=== PATIENT | male | born 1975 | race Caucasian/White ===

== ENCOUNTER 2020-12-17 11:47 | Inpatient (IN) ==
[2020-12-17] MEDS ORDERED: ONDANSETRON INJ 2 MG/ML 2 ML VIAL IV STA (12:50)
[2020-12-17] MEDS ORDERED: SODIUM CHLORIDE 0.9% 1000ML 1,000 ML IV STA (12:50)
--- NOTE | 2020-12-17 12:56 | Emergency Department Note ---
Impression & Plan Hydronephrosis due to obstruction of ureter, Renal colic on left side, Hydroureteronephrosis, Flank Pain ED Provider Note NAME: ILIA [id number] COLON AGE: 45 SEX: M : 1975 ARRIVES VIA: [employer] INFORMANT: Patient, ED PROVIDER(S): Sanchez Lepe DO CHIEF COMPLAINT: Flank pain HPI: The patient is a 45-year-old male who presented to the emergency department from the [facility] for an evaluation of left-sided flank pain. The patient was seen in our facility recently with similar complaints. At that time he was diagnosed with a 3 mm distal left ureteral calculus. He states a few days ago he feels that he passed the stone and was doing well until this morning. He had another acute onset of left-sided flank pain. He states it is associated with nausea. He states the pain is moderate to severe and radiates into his left testicle. He went to the [facility] and was treated with Toradol but symptoms worsen so he presented to the emergency department for an evaluation. The patient notices left flank pain but no midline pain. He said no trauma. He denies having any chest pain or difficulty breathing. He states the pain is moderate to severe. ROS: See above HPI for pertinent positives & negatives. A total of 10 systems reviewed and were otherwise negative. PAST MEDICAL HISTORY: See Below PAST SURGICAL HISTORY: See Below FAMILY HISTORY: See Below SOCIAL HISTORY: See Below HOME MEDICATIONS: See Below ALLERGIES: See Below VITALS: See Below PHYSICAL EXAMINATION: GENERAL: The patient is awake and alert. The patient is very anxious appearing. EYES: The conjunctivae are clear. The pupils are round and reactive. EARS, NOSE, MOUTH AND THROAT: The nose is without any evidence of any deformity. Mucous membranes are moist. Tongue is midline. NECK: The neck is nontender and supple. RESPIRATORY: Normal respiratory effort is noted there is no evidence of wheezing rhonchi or rales CARDIOVASCULAR: Regular rate and rhythm noted there no murmurs rubs or gallops normal S1 normal S2. GASTROINTESTINAL: The abdomen is soft and nondistended. There is left-sided tenderness to palpation but no guarding rigidity. BACK: No midline tenderness was noted. Left CVA tenderness was noted to percussion. MUSCULOSKELETAL/EXTREMITIES: There is no evidence of gross deformity full range of motion is noted in the hips and shoulders. SKIN: There is no obvious evidence of any rash. There are no petechiae, pallor or cyanosis noted. NEUROLOGIC: Patient is awake alert and oriented x3 strength is symmetric patellar reflexes are 2+ bilaterally MEDICAL DECISION MAKING: The patient is a 45-year-old male who presented to the emergency department for an evaluation of flank pain. The patient was treated with pain medication in the emergency department previously and was able to go home. He returns because of worsening pain. I discussed the patient's laboratory and radiographic studies with him. He was treated with multiple doses of pain medication but he still continues to have very significant pain. For this reason I discussed this case with the on-call [facility] hospitalist. They have agreed to evaluate the patient in the emergency department. He does have a stone that is low and may still be able to pass on medical treatment. [facility] in the emergency department for further management. Triage Nursing notes reviewed. Prior medical records reviewed Vital Signs: reviewed and remarkable for no significant abnormalities Differential diagnosis: Renal colic, UTI, appendicitis, diverticulitis, mesenteric ischemia, aortic pathology, infections, inflammatory bowel disease, PUD, biliary pathology, as well as other pathologies. ER treatment provided: See below Diagnostics interpreted by me: ECG: none Laboratory studies: As stated above and show below. Imaging studies: See below Consultation(s): I discussed this case with Dr. Bills who [facility] They will evaluate the patient in the emergency department. Past Med/Surg History Medical History History of kidney infection Surgical History No pertinent past surgical history Social History Smoking Status: Never smoker Hx Alcohol Use: No Hx Substance Use: No Preferred Language: Upper Sorbian Feels Safe at Home: Yes Allergies Allergies Allergy/AdvReac Type Severity Reaction Status Date / Time No Known Allergies Allergy Unverified 12/17/20 14:40 Home Meds Home Medications Medication Instructions Recorded Confirmed aripiprazole 5 mg tablet (Abilify) 5 mg PO BID 12/08/20 12/17/20 ibuprofen 600 mg tablet (IBU) 600 mg PO Q6H PRN 12/08/20 12/17/20 ketorolac 60 mg/2 mL intramuscular 60 mg IM DAILY 12/08/20 12/17/20 solution ketorolac 60 mg/2 mL intramuscular 30 mg IM ONCE 12/08/20 12/17/20 syringe Previous Rx's Medication Instructions Recorded tamsulosin 0.4 mg capsule (Flomax) 0.4 mg PO HS #10 cap 12/08/20 Results & Data (ED) Vital Signs Vital Signs - 24 hr 12/17/20 11:56 12/17/20 13:17 12/17/20 15:17 Temperature 36.7 C Temperature Source Oral Pulse Rate 70 Pulse Rate [Finger] 72 70 Pulse Rhythm Regular Pulse Strength Normal Respiratory Rate 16 18 20 Respiratory Effort / Characteristics Non-Labored Respiratory Depth Normal Respiratory Pattern Regular Blood Pressure 149/74 H Blood Pressure [Right Arm] 136/85 130/72 Blood Pressure Mean 99 Blood Pressure Mean [Right Arm] 102 91 Blood Pressure Position Sitting Pulse Oximetry 98 98 98 Oxygen Delivery Method Room Air Sepsis Recent Fever Within 48 Hours No Sepsis New/Unexplained Change in Mental Status N/A Sepsis Action Taken by Nursing No Action Required 12/17/20 16:30 Temperature Temperature Source Pulse Rate Pulse Rate [Finger] 72 Pulse Rhythm Pulse Strength Respiratory Rate 20 Respiratory Effort / Characteristics Respiratory Depth Respiratory Pattern Blood Pressure Blood Pressure [Right Arm] 134/76 Blood Pressure Mean Blood Pressure Mean [Right Arm] 95 Blood Pressure Position Pulse Oximetry 98 Oxygen Delivery Method Sepsis Recent Fever Within 48 Hours Sepsis New/Unexplained Change in Mental Status Sepsis Action Taken by [place] Medications Current Medication List: was personally reviewed by me Laboratory Data Attestation: I reviewed the patient's lab results. Result diagrams: 12/17/20 12:56 12/17/20 12:56 Lab Results 12/17/20 12/17/20 12/17/20 Range/Units 12:56 12:56 13:40 WBC 7.18 (4.8-10.8) K/uL RBC 4.87 (4.7-6.1) M/uL Hgb 14.6 (14.0-18.0) g/dL Hct 43.3 (42-52) % MCV 88.9 (80-100) fL MCH 30.0 (25-34) pg MCHC 33.7 (32-36) g/dL RDW Std Deviation 43.5 (36.4-46.3) fL RDW Coeff of Karli 13.2 (11.5-14.5) % Plt Count 199 (130-400) K/uL MPV 10.5 H (7.4-10.4) fL Immature Gran % (Auto) 0.3 % Neut % (Auto) 70.2 % Lymph % (Auto) 19.6 % Latimer % (Auto) 8.9 % Eos % (Auto) 0.4 % Baso % (Auto) 0.6 % Neut # (Auto) 5.04 (1.4-6.5) K/uL Lymph # (Auto) 1.41 (1.2-3.4) K/uL Latimer # (Auto) 0.64 H (0.11-0.59) K/uL Eos # (Auto) 0.03 (0-0.5) K/uL Baso # (Auto) 0.04 (0-0.2) K/uL Immature Gran # (Auto) 0.02 (0.00-0.02) K/uL Sodium 138 (136-145) mmol/L Potassium 4.3 (3.5-5.1) mmol/L Chloride 108 H (98-107) mmol/L Carbon Dioxide 27 (21-32) mmol/L Anion Gap 3.0 (3-11) BUN 13 (7-18) mg/dl Creatinine 1.23 (0.6-1.4) mg/dl Est Cr Clr Drug Dosing 74.9 ml/min Est GFR ( Amer) 82.8 ml/min Est GFR (Non-Af Amer) 71.5 ml/min BUN/Creatinine Ratio 10.7 (10-20) Glucose 85 (70-99) mg/dl Calcium 9.3 (8.5-10.1) mg/dl Total Bilirubin 0.6 (0.2-1) mg/dl AST 14 L (15-37) U/L ALT 18 (12-78) U/L Alkaline Phosphatase 40 L (45-117) U/L Total Protein 7.5 (6.4-8.2) gm/dl Albumin 4.0 (3.4-5.0) gm/dl Globulin 3.5 (2.5-4.0) gm/dl Albumin/Globulin Ratio 1.1 (0.9-2) Lipase 186 (73-393) U/L Urine Color Yellow Urine Appearance Clear (Clear) Urine pH 6.5 (4.5-7.5) Ur Specific Hollister 1.010 (1.000-1.030) Urine Protein Negative (Negative) Urine Glucose (UA) Negative (Negative) Urine Ketones Negative (Negative) Urine Blood 1+ H (Negative) Urine Nitrite Negative (Negative) Urine Bilirubin Negative (Negative) Urine Urobilinogen Negative (Negative) Ur Leukocyte Esterase Negative (Negative) Urine WBC (Auto) 0 (0-5) /hpf Urine RBC (Auto) 0-4 (0-4) /hpf U Hyaline Cast (Auto) 0 (0-5) /lpf U Epithel Cells (Auto) 0-5 (0-5) /lpf Urine Bacteria (Auto) Negative (Negative) COVID-19 Eval Order SARS-CoV-2 (PCR) (Negative) 12/17/20 12/17/20 Range/Units 15:53 15:53 WBC (4.8-10.8) K/uL RBC (4.7-6.1) M/uL Hgb (14.0-18.0) g/dL Hct (42-52) % MCV (80-100) fL MCH (25-34) pg MCHC (32-36) g/dL RDW Std Deviation (36.4-46.3) fL RDW Coeff of Karli (11.5-14.5) % Plt Count (130-400) K/uL MPV (7.4-10.4) fL Immature Gran % (Auto) % Neut % (Auto) % Lymph % (Auto) % Latimer % (Auto) % Eos % (Auto) % Baso % (Auto) % Neut # (Auto) (1.4-6.5) K/uL Lymph # (Auto) (1.2-3.4) K/uL Latimer # (Auto) (0.11-0.59) K/uL Eos # (Auto) (0-0.5) K/uL Baso # (Auto) (0-0.2) K/uL Immature Gran # (Auto) (0.00-0.02) K/uL Sodium (136-145) mmol/L Potassium (3.5-5.1) mmol/L Chloride (98-107) mmol/L Carbon Dioxide (21-32) mmol/L Anion Gap (3-11) BUN (7-18) mg/dl Creatinine (0.6-1.4) mg/dl Est Cr Clr Drug Dosing ml/min Est GFR ( Amer) ml/min Est GFR (Non-Af Amer) ml/min BUN/Creatinine Ratio (10-20) Glucose (70-99) mg/dl Calcium (8.5-10.1) mg/dl Total Bilirubin (0.2-1) mg/dl AST (15-37) U/L ALT (12-78) U/L Alkaline Phosphatase (45-117) U/L Total Protein (6.4-8.2) gm/dl Albumin (3.4-5.0) gm/dl Globulin (2.5-4.0) gm/dl Albumin/Globulin Ratio (0.9-2) Lipase (73-393) U/L Urine Color Urine Appearance (Clear) Urine pH (4.5-7.5) Ur Specific Hollister (1.000-1.030) Urine Protein (Negative) Urine Glucose (UA) (Negative) Urine Ketones (Negative) Urine Blood (Negative) Urine Nitrite (Negative) Urine Bilirubin (Negative) Urine Urobilinogen (Negative) Ur Leukocyte Esterase (Negative) Urine WBC (Auto) (0-5) /hpf Urine RBC (Auto) (0-4) /hpf U Hyaline Cast (Auto) (0-5) /lpf U Epithel Cells (Auto) (0-5) /lpf Urine Bacteria (Auto) (Negative) COVID-19 Eval Order Covid19 at [facility] SARS-CoV-2 (PCR) NEGATIVE (Negative) Administered Medications Morphine Sulfate (Morphine Sulfate 4 Mg/Ml 1 Ml Carp\Vial) 4 mg IV Q15M PRN PRN Reason: Pain Stop: 12/31/20 12:49 Last Admin: 12/17/20 16:36 Dose: 4 mg Documented by: [id number] Admin: 12/17/20 15:39 Dose: 4 mg Documented by: [id number] Admin: 12/17/20 15:02 Dose: 4 mg Documented by: [id number] Admin: 12/17/20 14:20 Dose: 4 mg Documented by: [id number] Admin: 12/17/20 13:42 Dose: 4 mg Documented by: [id number] Admin: 12/17/20 13:11 Dose: 4 mg Documented by: [id number] Discontinued Medications Sodium Chloride (Nss 1000ml) 1,000 mls @ 999 mls/hr IV .Q1H1M STA Stop: 12/17/20 13:50 Last Infusion: 12/17/20 14:13 Dose: 0 mls/hr Documented by: [id number] Admin: 12/17/20 13:12 Dose: 999 mls/hr Documented by: [id number] Ondansetron HCl (Ondansetron Inj 2 Mg/Ml 2 Ml Vial) 4 mg IV NOW STA Stop: 12/17/20 12:51 Last Admin: 12/17/20 13:11 Dose: 4 mg Documented by: [id number] Imaging Data Radiologist's Impression: KUB X-Ray 12/17/20 12:58 KUB CLINICAL HISTORY: Left flank pain. COMPARISON STUDY: CT of the abdomen and pelvis December 08, 2020. FINDINGS: 5 mm distal left ureteral calculus is similar position to CT of December 08, 2020. Additional pelvic calcifications reflect phleboliths and prostatic calcifications. The bowel gas pattern is normal. IMPRESSION: No significant change in position of a 5 mm distal left ureteral calculus. ACT 112: Negative or not required by law. Electronically signed by: Himanshu Blount M.D. 12/17/2020 1:57 PM Renal Ultrasound 12/17/20 12:58 ULTRASOUND KIDNEYS AND BLADDER CLINICAL HISTORY: Left flank pain. Nephrolithiasis. COMPARISON STUDY: KUB dated 12/17/2020. Abdominal CT dated 12/08/2020 TECHNIQUE: Real-time, grayscale, and color flow sonography of the kidneys and bladder is performed. Images are reviewed in the transverse and longitudinal planes. FINDINGS: Kidneys: The kidneys are normal in size and echotexture. The right kidney measures 9.8 x 4.6 x 5.1 cm and the left kidney measures 11.5 x 7.0 x 6.2 cm. There is mild to moderate left-sided hydronephrosis. No hydronephrosis is seen on the right. No shadowing renal calculi are identified. There is no sonographic evidence of contour deforming renal mass lesion. No perinephric fluid is identified. Bladder: The bladder is normal in appearance. Only the right ureteral jet was seen. A 7 mm shadowing calculus is seen at the left vesicoureteral junction. IMPRESSION: 1. A 7 mm shadowing calculus is seen at the left vesicoureteral junction and there is mild to moderate upstream left hydroureteronephrosis. 2. The kidneys are normal in size. There is no right-sided hydronephrosis. 3. Asymmetrically diminished/heterogeneous cortical enhancement of the left kidney as compared to the right on the recent abdominal CT scan is represents a delayed nephrogram secondary to left sided obstruction/hydronephrosis. ACT 112: Negative or not required by law. Electronically signed by: Asif Turcios M.D. 12/17/2020 2:20 PM Discharge Plan Visit Data Chief Complaint: Kidney Stone Stated Complaint: KIDNEY STONE ED Provider: Sanchez Lepe Discharge Problem: Hydronephrosis due to obstruction of ureter, Renal colic on left side, Hydroureteronephrosis, Flank Pain Patient Disposition: Being Evaluated by Hospitalist Condition: Good Forms Stand Alone Forms: [facility] [place] [email or web address] Prescriptions Prescriptions: No Action ibuprofen [IBU] 600 mg Tablet 600 mg PO Q6H PRN (Reason: Pain) RF: 0 ketorolac 60 mg/2 mL Solution 60 mg IM DAILY RF: 0 aripiprazole [Abilify] 5 mg Tablet 5 mg PO BID RF: 0 ketorolac 60 mg/2 mL Syringe 30 mg IM ONCE RF: 0 tamsulosin [Flomax] 0.4 mg capsule 0.4 mg PO HS Qty: 10 RF: 0 Referrals Referrals: Nicolle PRATHER [Primary Care Provider] -
[2020-12-17 13:10] LABS: Basophils # (auto) 0.04 K/uL (0-0.2); Basophils % (auto) 0.6 %; Eosinophils # (auto) 0.03 K/uL (0-0.5); Eosinophils % (auto) 0.4 %; Hematocrit (blood only) 43.3 % (42-52); Hemoglobin 14.6 g/dL (14.0-18.0); Immature Granulocytes # (auto) 0.02 K/uL (0.00-0.02); Immature Granulocytes % (auto) 0.3 %; Lymphocytes # (auto) 1.41 K/uL (1.2-3.4); Lymphocytes % (auto) 19.6 %; Mean Corpuscular Hgb Conc 33.7 g/dL (32-36); Mean Corpuscular Volume 88.9 fL (80-100); Mean Platelet Volume 10.5 fL (7.4-10.4); Monocytes # (auto) 0.64 K/uL (0.11-0.59); Monocytes % (auto) 8.9 %; Neutrophils # (auto) 5.04 K/uL (1.4-6.5); Neutrophils % (auto) 70.2 %; Platelet Count 199 K/uL (130-400); RDW Coefficient of Variation 13.2 % (11.5-14.5); RDW Standard Deviation 43.5 fL (36.4-46.3); Red Blood Count 4.87 M/uL (4.7-6.1); White Blood Count 7.18 K/uL (4.8-10.8)
[2020-12-17] MEDS: MoRPHine SULFATE 4 MG/ML 1 ML CARP\\VIAL IV PRN ×6 (13:11→16:36)
[2020-12-17 13:25] LABS: BUN Creatinine Ratio 10.7 (10-20); Calcium 9.3 mg/dl (8.5-10.1); Creatinine Clr Calc Pharmacy 74.9 ml/min; Est GFR (African American) 82.8 ml/min; Est GFR (Non-African American) 71.5 ml/min; Potassium 4.3 mmol/L (3.5-5.1)
[2020-12-17 13:28] LABS: Albumin Globulin Ratio 1.1 (0.9-2); Bilirubin,Total 0.6 mg/dl (0.2-1); Globulin 3.5 gm/dl (2.5-4.0); Total Protein 7.5 gm/dl (6.4-8.2)
[2020-12-17 13:53] LABS: Appearance Urine Clear (Clear); Bacteria Urine Automated Negative (Negative); Bilirubin Urine Negative (Negative); Blood Urine 1+ (Negative); Cast Urine Automated 0 /lpf (0-5); Color Urine Yellow; Epithelial Cell Urine Auto 0-5 /lpf (0-5); Glucose Urine UA Negative (Negative); Ketones Urine Negative (Negative); Leukocyte Esterase Urine Negative (Negative); Nitrite Urine Negative (Negative); Protein Urine Negative (Negative); RBC Urine Automated 0-4 /hpf (0-4); Urobilinogen Urine Negative (Negative); WBC Urine Automated 0 /hpf (0-5); pH Urine 6.5 (4.5-7.5)
--- NOTE | 2020-12-17 13:58 | XRay Report ---
KUB CLINICAL HISTORY: Left flank pain. COMPARISON STUDY: CT of the abdomen and pelvis December 08, 2020. FINDINGS: 5 mm distal left ureteral calculus is similar position to CT of December 08, 2020. Additional p elvic calcifications reflect phleboliths and prostatic calcifications. The bowel gas pattern is radha l. IMPRESSION: No significant change in position of a 5 mm distal left ureteral calculus. ACT 112: Negative or not required by law. Electronically signed by: Himanshu Blount M.D. 12/17/2020 1:57 PM
--- NOTE | 2020-12-17 14:21 | Ultrasound Report ---
ULTRASOUND KIDNEYS AND BLADDER CLINICAL HISTORY: Left flank pain. Nephrolithiasis. COMPARISON STUDY: KUB dated 12/17/2020. Abdominal CT dated 12/08/2020 TECHNIQUE: Real-time, grayscale, and color flow sonography of the kidneys and bladder is performed. I mages are reviewed in the transverse and longitudinal planes. FINDINGS: Kidneys: The kidneys are normal in size and echotexture. The right kidney measures 9.8 x 4.6 x 5.1 cm and the left kidney measures 11.5 x 7.0 x 6.2 cm. There is mild to moderate left-sided hydronephros is. No hydronephrosis is seen on the right. No shadowing renal calculi are identified. There is no so nographic evidence of contour deforming renal mass lesion. No perinephric fluid is identified. Bladder: The bladder is normal in appearance. Only the right ureteral jet was seen. A 7 mm shadowing calculus is seen at the left vesicoureteral junction. IMPRESSION: 1. A 7 mm shadowing calculus is seen at the left vesicoureteral junction and there is mild to moderat e upstream left hydroureteronephrosis. 2. The kidneys are normal in size. There is no right-sided hydronephrosis. 3. Asymmetrically diminished/heterogeneous cortical enhancement of the left kidney as compared to the right on the recent abdominal CT scan is represents a delayed nephrogram secondary to left sided obs truction/hydronephrosis. ACT 112: Negative or not required by law. Electronically signed by: Asif Turcios M.D. 12/17/2020 2:20 PM
--- NOTE | 2020-12-17 16:52 | History & Physical Report ---
Date of Service December 17, 2020 Assessment & Plan (1) Renal colic on left side: Plan: Patient has obstructive nephrolithiasis is document above. Can give continue morphine for pain Start Flomax We will consult urology for further recommendations (2) Hepatitis C: Plan: Stable, patient is not on no treatment for this History of Present Illness Chief Complaint: Left flank pain Primary Care Provider: [facility] [place] This is a 45 male with past medical history of cirrhosis from hepatitis C that presents today complaining of left flank pain. Patient is a prisoner at [facility]. Is a decent historian. Patient was here on 12/06. At that time he was having similar symptoms, was diagnosed with 3mm distal ureteral stone. He was felt that this would pass on its own the patient was discharged back to custodial. He feels that he did in fact pass a stone was doing well up until earlier today. He started having similar flank pain although this time was worse. He was given 2 doses of pain medication at the [facility] but this did not help. Patient was transported here for further evaluation. Patient had an ultrasound and a KUB, patient has a ureteral stone that is between 5 and 7 mm at the left UVJ. There is evidence of hydronephrosis. Anjali ruiz is now being admitted for further evaluation and definitive treatment. Allergies Allergy/AdvReac Type Severity Reaction Status Date / Time No Known Allergies Allergy Unverified 12/17/20 14:40 Home Medications Medication Instructions Recorded Confirmed Type aripiprazole 5 mg tablet (Abilify) 5 mg PO BID 12/08/20 12/17/20 History ibuprofen 600 mg tablet (IBU) 600 mg PO Q6H PRN 12/08/20 12/17/20 History ketorolac 60 mg/2 mL intramuscular 60 mg IM DAILY 12/08/20 12/17/20 History solution ketorolac 60 mg/2 mL intramuscular 30 mg IM ONCE 12/08/20 12/17/20 History syringe tamsulosin 0.4 mg capsule (Flomax) 0.4 mg PO HS #10 cap 12/08/20 12/17/20 Rx Past Med/Surg History Medical History History of kidney infection Surgical History No pertinent past surgical history Social History Smoking Status: Never smoker Hx Alcohol Use: No Hx Substance Use: No Preferred Language: Occitan Feels Safe at Home: Yes Review of Systems Constitutional: no fever, no chills, no weakness, no weight loss and no weight gain Eyes: as per Subjective / HPI Respiratory: no cough, no chest congestion, no dyspnea and no dyspnea on exertion Cardiovascular: no chest pain, no orthopnea, no palpitations, no lightheadedness and no edema Gastrointestinal: no abdominal pain, no nausea, no vomiting, no constipation and no diarrhea/loose stools Genitourinary: + flank pain, + genital pain and + testicle pain; no dysuria, no difficulty urinating, no urinary frequency or no urinary hesitancy Musculoskeletal: no back pain, no neck pain, no joint pain, no stiffness and no myalgia Integumentary: no rash Neurologic: no gait abnormality, no unsteadiness, no falls and no generalized weakness Physical Exam Constitutional: cooperative; no acute distress Neck: trachea midline, no thyromegaly Respiratory: normal respiratory effort Auscultation: lungs clear to auscultation bilaterally; no crackles, no rales, no rhonchi and no wheezes Cardiovascular: Rate/Rhythm: regular rate and regular rhythm Heart Sounds: normal S1 and normal S2 Gastrointestinal (Abdomen): Inspection/Auscultation: abdomen normal to inspection Percussion/Palpation: abdomen soft; abdomen nontender, no guarding, abdomen not rigid and no hepatosplenomegaly Skin: no rashes, warm and dry Genitourinary: severe L CVA tenderess with guarding Results & Data Results & Data ([facility]) Vital Signs (Past 12 Hours) Vital Signs Temp Pulse Pulse Resp BP BP Pulse Ox 12/17/20 16:30 72 20 134/76 98 12/17/20 15:17 70 20 130/72 98 12/17/20 13:17 72 18 136/85 98 12/17/20 11:56 36.7 C 70 16 149/74 H 98 Laboratory Results Laboratory Results WBC 7.18 K/uL (4.8-10.8) 12/17/20 12:56 RBC 4.87 M/uL (4.7-6.1) 12/17/20 12:56 Hgb 14.6 g/dL (14.0-18.0) 12/17/20 12:56 Hct 43.3 % (42-52) 12/17/20 12:56 MCV 88.9 fL (80-100) 12/17/20 12:56 MCH 30.0 pg (25-34) 12/17/20 12:56 MCHC 33.7 g/dL (32-36) 12/17/20 12:56 RDW Std Deviation 43.5 fL (36.4-46.3) 12/17/20 12:56 RDW Coeff of Karli 13.2 % (11.5-14.5) 12/17/20 12:56 Plt Count 199 K/uL (130-400) 12/17/20 12:56 MPV 10.5 fL (7.4-10.4) H 12/17/20 12:56 Immature Gran % (Auto) 0.3 % 12/17/20 12:56 Neut % (Auto) 70.2 % 12/17/20 12:56 Lymph % (Auto) 19.6 % 12/17/20 12:56 [place] % (Auto) 8.9 % 12/17/20 12:56 Eos % (Auto) 0.4 % 12/17/20 12:56 Baso % (Auto) 0.6 % 12/17/20 12:56 Neut # (Auto) 5.04 K/uL (1.4-6.5) 12/17/20 12:56 Lymph # (Auto) 1.41 K/uL (1.2-3.4) 12/17/20 12:56 [place] # (Auto) 0.64 K/uL (0.11-0.59) H 12/17/20 12:56 Eos # (Auto) 0.03 K/uL (0-0.5) 12/17/20 12:56 Baso # (Auto) 0.04 K/uL (0-0.2) 12/17/20 12:56 Immature Gran # (Auto) 0.02 K/uL (0.00-0.02) 12/17/20 12:56 Sodium 138 mmol/L (136-145) 12/17/20 12:56 Potassium 4.3 mmol/L (3.5-5.1) 12/17/20 12:56 Chloride 108 mmol/L (98-107) H 12/17/20 12:56 Carbon Dioxide 27 mmol/L (21-32) 12/17/20 12:56 Anion Gap 3.0 (3-11) 12/17/20 12:56 BUN 13 mg/dl (7-18) 12/17/20 12:56 Creatinine 1.23 mg/dl (0.6-1.4) 12/17/20 12:56 Est Cr Clr Drug Dosing 74.9 ml/min 12/17/20 12:56 Est GFR ( Amer) 82.8 ml/min 12/17/20 12:56 Est GFR (Non-Af Amer) 71.5 ml/min 12/17/20 12:56 BUN/Creatinine Ratio 10.7 (10-20) 12/17/20 12:56 Glucose 85 mg/dl (70-99) 12/17/20 12:56 Calcium 9.3 mg/dl (8.5-10.1) 12/17/20 12:56 Total Bilirubin 0.6 mg/dl (0.2-1) 12/17/20 12:56 AST 14 U/L (15-37) L 12/17/20 12:56 ALT 18 U/L (12-78) 12/17/20 12:56 Alkaline Phosphatase 40 U/L (45-117) L 12/17/20 12:56 Total Protein 7.5 gm/dl (6.4-8.2) 12/17/20 12:56 Albumin 4.0 gm/dl (3.4-5.0) 12/17/20 12:56 Globulin 3.5 gm/dl (2.5-4.0) 12/17/20 12:56 Albumin/Globulin Ratio 1.1 (0.9-2) 12/17/20 12:56 Lipase 186 U/L (73-393) 12/17/20 12:56 Urine Color Yellow 12/17/20 13:40 Urine Appearance Clear (Clear) 12/17/20 13:40 Urine pH 6.5 (4.5-7.5) 12/17/20 13:40 Ur Specific [place] 1.010 (1.000-1.030) 12/17/20 13:40 Urine Protein Negative (Negative) 12/17/20 13:40 Urine Glucose (UA) Negative (Negative) 12/17/20 13:40 Urine Ketones Negative (Negative) 12/17/20 13:40 Urine Blood 1+ (Negative) H 12/17/20 13:40 Urine Nitrite Negative (Negative) 12/17/20 13:40 Urine Bilirubin Negative (Negative) 12/17/20 13:40 Urine Urobilinogen Negative (Negative) 12/17/20 13:40 Ur Leukocyte Esterase Negative (Negative) 12/17/20 13:40 Urine WBC (Auto) 0 /hpf (0-5) 12/17/20 13:40 Urine RBC (Auto) 0-4 /hpf (0-4) 12/17/20 13:40 U Hyaline Cast (Auto) 0 /lpf (0-5) 12/17/20 13:40 U Epithel Cells (Auto) 0-5 /lpf (0-5) 12/17/20 13:40 Urine Bacteria (Auto) Negative (Negative) 12/17/20 13:40 COVID-19 Eval Order Covid19 at [facility] 12/17/20 15:53 Impressions KUB X-Ray 12/17/20 12:58 KUB CLINICAL HISTORY: Left flank pain. COMPARISON STUDY: CT of the abdomen and pelvis December 08, 2020. FINDINGS: 5 mm distal left ureteral calculus is similar position to CT of December 08, 2020. Additional pelvic calcifications reflect phleboliths and prostatic calcifications. The bowel gas pattern is normal. IMPRESSION: No significant change in position of a 5 mm distal left ureteral calculus. ACT 112: Negative or not required by law. Electronically signed by: Himanshu Blount M.D. 12/17/2020 1:57 PM Renal Ultrasound 12/17/20 12:58 ULTRASOUND KIDNEYS AND BLADDER CLINICAL HISTORY: Left flank pain. Nephrolithiasis. COMPARISON STUDY: KUB dated 12/17/2020. Abdominal CT dated 12/08/2020 TECHNIQUE: Real-time, grayscale, and color flow sonography of the kidneys and bladder is performed. Images are reviewed in the transverse and longitudinal planes. FINDINGS: Kidneys: The kidneys are normal in size and echotexture. The right kidney measures 9.8 x 4.6 x 5.1 cm and the left kidney measures 11.5 x 7.0 x 6.2 cm. There is mild to moderate left-sided hydronephrosis. No hydronephrosis is seen on the right. No shadowing renal calculi are identified. There is no sonographic evidence of contour deforming renal mass lesion. No perinephric fluid is identified. Bladder: The bladder is normal in appearance. Only the right ureteral jet was seen. A 7 mm shadowing calculus is seen at the left vesicoureteral junction. IMPRESSION: 1. A 7 mm shadowing calculus is seen at the left vesicoureteral junction and there is mild to moderate upstream left hydroureteronephrosis. 2. The kidneys are normal in size. There is no right-sided hydronephrosis. 3. Asymmetrically diminished/heterogeneous cortical enhancement of the left kidney as compared to the right on the recent abdominal CT scan is represents a delayed nephrogram secondary to left sided obstruction/hydronephrosis. ACT 112: Negative or not required by law. Electronically signed by: Asif Turcios M.D. 12/17/2020 2:20 PM PG Care Time/CCT Total # of Minutes Spent Total Time Spent with Patient: Total time spent is greater than 50% in coordination of care (as documented) at patient's floor/unit and/or counseling patient: Coding Level of Care Code INT OBSERVATION CARE 70M LVL 3 Diagnoses Renal colic on left side N23 Hepatitis C B19.20
[2020-12-17] MEDS ORDERED: HYDROmorphone INJ 0.5 MG/0.5 ML SYR IV STA (19:10)
[2020-12-17] MEDS: SODIUM CHLORIDE 0.9% 1000ML 1,000 ML IV SCH (21:46)
[2020-12-17] MEDS: TAMSULOSIN HCL 0.4 MG CAP PO SCH (22:35)
[2020-12-17] MEDS: ARIPiprazole 5 MG TAB PO SCH (22:36)
[2020-12-17] MEDS: HYDROmorphone INJ 0.5 MG/0.5 ML SYR IV PRN (23:15)
[2020-12-18] MEDS: HYDROmorphone INJ 0.5 MG/0.5 ML SYR IV PRN ×2 (03:23→08:17)
[2020-12-18] MEDS ORDERED: HYDROmorphone INJ 1 MG/ML SYRINGE IV STA (06:14)
[2020-12-18 06:27] LABS: Basophils # (auto) 0.02 K/uL (0-0.2); Basophils % (auto) 0.1 %; Eosinophils # (auto) 0.01 K/uL (0-0.5); Eosinophils % (auto) 0.1 %; Hematocrit (blood only) 41.9 % (42-52); Hemoglobin 13.9 g/dL (14.0-18.0); Immature Granulocytes # (auto) 0.03 K/uL (0.00-0.02); Immature Granulocytes % (auto) 0.2 %; Lymphocytes # (auto) 1.19 K/uL (1.2-3.4); Mean Corpuscular Hemoglobin 29.9 pg (25-34); Mean Corpuscular Hgb Conc 33.2 g/dL (32-36); Mean Corpuscular Volume 90.1 fL (80-100); Mean Platelet Volume 10.2 fL (7.4-10.4); Monocytes # (auto) 1.35 K/uL (0.11-0.59); Monocytes % (auto) 9.1 %; Neutrophils # (auto) 12.27 K/uL (1.4-6.5); Neutrophils % (auto) 82.5 %; Platelet Count 195 K/uL (130-400); RDW Coefficient of Variation 13.1 % (11.5-14.5); RDW Standard Deviation 42.9 fL (36.4-46.3); Red Blood Count 4.65 M/uL (4.7-6.1); White Blood Count 14.87 K/uL (4.8-10.8)
[2020-12-18] MEDS: SODIUM CHLORIDE 0.9% 1000ML 1,000 ML IV SCH ×4 (06:32→21:35)
[2020-12-18 07:11] LABS: Calcium 9.3 mg/dl (8.5-10.1); Creatinine Clr Calc Pharmacy 59.5 ml/min; Est GFR (African American) 62.6 ml/min; Potassium 4.5 mmol/L (3.5-5.1)
[2020-12-18] MEDS: ARIPiprazole 5 MG TAB PO SCH ×2 (08:17→19:24)
[2020-12-18] MEDS ORDERED: ONDANSETRON INJ 2 MG/ML 2 ML VIAL IV PRN (08:27)
[2020-12-18] MEDS ORDERED: SODIUM CHLORIDE 0.9% 1000ML 1,000 ML IV ONE (08:29)
--- NOTE | 2020-12-18 09:12 | Urology Consultation ---
Date of Consultation December 18, 2020 Assessment & Plan (1) Hydronephrosis due to obstruction of ureter: (2) Left ureteral stone: 45 year old male admitted with left flank pain secondary to left distal ureteral stone with mild hydronephrosis. - Plan of care reviewed with Dr. Honeycutt, urologist security operations center analyst - Afebrile, nontoxic, lab work reviewed - creatinine increased to 1.55, WBC 14.87 (previously 7.18) - Continues to have intermittent pain, mild/moderate relief with IV analgesia - UA on admission not suggestive of UTI, no urine culture collected - KUB reviewed and showed 5 mm left distal ureteral stone; mild to moderate left hydronephrosis noted on ANTOLIN - Discussed options for stone management including trial of passage vs surgical intervention with URS-LL, stent while inpatient - Procedures, success rates, risks, benefits and clinical courses reviewed - Patient elects observation/trial of passage overnight - Continue supportive care and management per primary service - Okay to resume diet today, make NPO again at [place] - Please consult our service urgently if patient develops fever >101F, intractable pain or nausea, as this will necessitate urgent surgical intervention. Thank you for the consultation and we will continue to monitor closely with primary service. History of Present Illness Reason for Consultation: Kidney stone Requesting Physician: Dr. Bills Attending Physician: Maximino Wiseman MD History of Present Illness 45 year old male with past medical history of cirrhosis from hepatitis C admitted with left flank pain secondary to left distal ureteral stone with mild hydronephrosis. Patient is a prisoner at [facility]. He presented to [facility] ED on 12/08/20 with left flank pain. CTAP reviewed and showed 3 mm left distal stone near UVJ with mild hydronephrosis. Afebrile, lab work showed creatinine 1.36, WBC 11.99, UA not suggestive of infection. He improved in ED with Ketorolac, Morphine, Oxycodone, and Ondansetron, and he was discharged back to [facility]. He reports he had passed a stone/fragment after first ER presentation, collected in strainer and pain had resolved. Unfortunately, his pain recurred prompting return to [facility] ED again on 12/17/20. Afebrile on arrival. Lab work showed creatinine 1.23, WBC 7.18, Hgb 14.6. UA 0-4 RBC, negative bacteria, negative nitrates. No urine culture collected. KUB and ANTOLIN showed distal left ureteral stone present, no significant change. ED treatment included IV fluids, Morphine, Ondansetron. He was admitted to hospital medicine service for further evaluation and treatment. Our service is consulted for left ureteral stone. Chart review: Afebrile Creatinine 1.55 WBC 14.87 Hgb 13.9 Imaging: KUB - IMPRESSION: No significant change in position of a 5 mm distal left ureteral calculus. ANTOLIN - IMPRESSION: 1. A 7 mm shadowing calculus is seen at the left vesicoureteral junction and there is mild to moderate upstream left hydroureteronephrosis. 2. The kidneys are normal in size. There is no right-sided hydronephrosis. 3. Asymmetrically diminished/heterogeneous cortical enhancement of the left kidney as compared to the right on the recent abdominal CT scan is represents a delayed nephrogram secondary to left sided obstruction/hydronephrosis. Pt seen and examined at bedside. Denies stone passage overnight. He continues to have left flank pain which is radiating to groin, mild to moderate relief with IV Dilaudid. Occasional nausea, no vomiting. He is voiding spontaneously. Feels he is emptying bladder, but notes it is taking him longer to void for the past day. No dysuria or hematuria. No fever or chills. Patient noted to be NPO in chart this AM, but on arrival he had a breakfast tray. He states he did not eat any food yet, but drank half of his coffee. No chest pain, shortness of breath, or lower extremity swelling. No prior stone history. No additional concerns today. Allergies Allergy/AdvReac Type Severity Reaction Status Date / Time No Known Allergies Allergy Unverified 12/17/20 14:40 Home Medications Medication Instructions Recorded Confirmed Type aripiprazole 5 mg tablet (Abilify) 5 mg PO BID 12/08/20 12/17/20 History ibuprofen 600 mg tablet (IBU) 600 mg PO Q6H PRN 12/08/20 12/17/20 History ketorolac 60 mg/2 mL intramuscular 60 mg IM DAILY 12/08/20 12/17/20 History solution ketorolac 60 mg/2 mL intramuscular 30 mg IM ONCE 12/08/20 12/17/20 History syringe tamsulosin 0.4 mg capsule (Flomax) 0.4 mg PO HS #10 cap 12/08/20 12/17/20 Rx Patient History Medical History History of kidney infection Surgical History No pertinent past surgical history Social History Smoking Status: Never smoker Hx Alcohol Use: No Hx Substance Use: No Preferred Language: Maori Order Processing Specialist Required: No Beliefs That Will Affect Care: None Current Living Situation: Other Current Living Situation Comment: [facility] Feels Safe at Home: Yes Safety Concerns: Feels Safe At This Time Assistive Devices: None Review of Systems Constitutional: as per Subjective / HPI Eyes: + corrective lenses Respiratory: no dyspnea Cardiovascular: no chest pain Gastrointestinal: as per Subjective / HPI Genitourinary: + as per Subjective / HPI Musculoskeletal: no problem reported Integumentary: no problem reported Neurologic: no problem reported Psychiatric: no problem reported Physical Exam Constitutional: well developed and well nourished; no acute distress and not ill appearing Neck: normal visual inspection Respiratory: normal respiratory effort and able to speak in complete sentences; no respiratory distress and no labored breathing Cardiovascular: Extremities: no pedal edema Gastrointestinal (Abdomen): Inspection/Auscultation: abdomen normal to inspection; abdomen not distended Percussion/Palpation: abdomen soft; abdomen nontender and no guarding Neurologic: moves all extremities and awake Psychiatric: Orientation: alert, oriented x 3 and cooperative Genitourinary: + CVA tenderness (mild ttp left flank) Results & Data ([facility]) Vital Signs (Past 12 Hours) Vital Signs Temp Pulse Resp BP Pulse Ox 12/18/20 08:22 36.8 C 78 16 130/89 95 12/17/20 23:19 36.6 C 66 18 125/87 96 PG Care Time/CCT Total # of Minutes Spent Total Time Spent with Patient: Total time spent is greater than 50% in coordination of care (as documented) at patient's floor/unit and/or counseling patient: Coding Level of Care Code 37712 Inpt Consult Level 4 Diagnoses Hydronephrosis due to obstruction of ureter N13.1 Left ureteral stone N20.1
[2020-12-18] MEDS: cefTRIAXone SODIUM 1,000 MG in DEXTROSE 5% 50 ML IV SCH (09:41)
[2020-12-18] MEDS ORDERED: HYDROmorphone INJ 1 MG/ML SYRINGE IV PRN (09:42)
--- NOTE | 2020-12-18 13:06 | Hospitalist Progress Note ---
Date of Service December 18, 2020 Assessment & Plan (1) Renal colic on left side: Plan: Morphine for pain, ondansetron for nausea Continue tamsulosin 0.4mg PO HS Continue IV NSS, increase to 200ml/hr Appreciate urology recommendations - NPO after midnight (2) Leukocytosis: Plan: Start ceftriaxone due to rising WBC. UA not suggestive of infection. (3) Elevated serum creatinine: Plan: Does not meet criteria for STACY. Obstructive uropathy - management per urology. Increase NSS as above. (4) Hepatitis C: Plan: Stable, patient is not on no treatment for this Admission and Anticipated Discharge Date Admission Date: December 17, 2020 Subjective Reports ongoing severe 10/10 left groin pain. Dilaudid only lasting 5-10 minutes to take away the pain. No fever, chills or dysuria. Review of Systems Review of Systems: All systems reviewed & are unremarkable except as noted in HPI & below Physical Exam Constitutional: WD/WN, vitals as above ENMT: external ear and nose normal, oropharynx normal Respiratory: normal respiratory effort Auscultation: lungs clear to auscultation bilaterally Cardiovascular: RRR, no murmur, no edema Genitourinary: + CVA tenderness (left) Results & Data Results & Data ([facility]) Vital Signs (Past 12 Hours) Vital Signs Temp Pulse Resp BP Pulse Ox 12/18/20 08:22 36.8 C 78 16 130/89 95 PG Care Time/CCT Total # of Minutes Spent Total Time Spent with Patient: Total time spent is greater than 50% in co ordination of care (as documented) at patient's floor/unit and/or counseling patient: Coding Level of Care Code 83061 Subseq Hosp Care Lvl 2 Diagnoses Renal colic on left side N23 Hepatitis C B19.20 Leukocytosis D72.829 Elevated serum creatinine R79.89
[2020-12-18] MEDS: MoRPHine SULFATE 4 MG/ML 1 ML CARP\\VIAL IV PRN ×6 (13:09→23:28)
[2020-12-18] MEDS: ACETAMINOPHEN 500 MG TAB PO SCH ×2 (13:12→19:25)
[2020-12-18 14:26] LABS: BUN Creatinine Ratio 9.7 (10-20); Calcium 8.9 mg/dl (8.5-10.1); Creatinine Clr Calc Pharmacy 55.2 ml/min; Est GFR (African American) 57.2 ml/min; Est GFR (Non-African American) 49.4 ml/min; Potassium 4.1 mmol/L (3.5-5.1)
[2020-12-18] MEDS: TAMSULOSIN HCL 0.4 MG CAP PO SCH (19:25)
[2020-12-19] MEDS: MoRPHine SULFATE 4 MG/ML 1 ML CARP\\VIAL IV PRN ×5 (01:23→09:54)
[2020-12-19] MEDS: SODIUM CHLORIDE 0.9% 1000ML 1,000 ML IV SCH ×2 (02:35→07:28)
[2020-12-19 05:50] LABS: Basophils # (auto) 0.02 K/uL (0-0.2); Basophils % (auto) 0.2 %; Eosinophils # (auto) 0.05 K/uL (0-0.5); Eosinophils % (auto) 0.5 %; Hematocrit (blood only) 38.1 % (42-52); Hemoglobin 12.5 g/dL (14.0-18.0); Immature Granulocytes # (auto) 0.02 K/uL (0.00-0.02); Immature Granulocytes % (auto) 0.2 %; Lymphocytes # (auto) 1.12 K/uL (1.2-3.4); Lymphocytes % (auto) 10.5 %; Mean Corpuscular Hemoglobin 29.8 pg (25-34); Mean Corpuscular Hgb Conc 32.8 g/dL (32-36); Mean Corpuscular Volume 90.9 fL (80-100); Mean Platelet Volume 11.4 fL (7.4-10.4); Monocytes # (auto) 1.15 K/uL (0.11-0.59); Monocytes % (auto) 10.8 %; Neutrophils # (auto) 8.32 K/uL (1.4-6.5); Neutrophils % (auto) 77.8 %; Platelet Count 183 K/uL (130-400); RDW Coefficient of Variation 13.1 % (11.5-14.5); RDW Standard Deviation 43.7 fL (36.4-46.3); Red Blood Count 4.19 M/uL (4.7-6.1); White Blood Count 10.68 K/uL (4.8-10.8)
[2020-12-19 06:28] LABS: BUN Creatinine Ratio 11.5 (10-20); Calcium 8.5 mg/dl (8.5-10.1); Creatinine Clr Calc Pharmacy 62.7 ml/min; Est GFR (African American) 66.8 ml/min; Est GFR (Non-African American) 57.6 ml/min; Potassium 4.2 mmol/L (3.5-5.1)
--- NOTE | 2020-12-19 08:18 | XRay Report ---
KUB HISTORY: Left ureteral calculus left ureteral stone COMPARISON: KUB 12/17/2020, CT abdomen pelvis 12/08/2020 FINDINGS: Nonobstructive bowel gas pattern. Mild to moderate fecal retention. Renal shadows are obsc ured by bowel gas. [place] phleboliths redemonstrated. Unchanged positioning of the 5 mm left distal ur eteral calculus. No pneumoperitoneum or pneumatosis. No fracture. IMPRESSION: Unchanged positioning of the 5 mm left distal ureteral calculus. ACT 112: Negative or not required by law. The above report was generated using voice recognition software. It may contain grammatical, syntax o r spelling errors. Electronically signed by: Jose Miguel Brooks M.D. 12/19/2020 8:17 AM
[2020-12-19] MEDS: cefTRIAXone SODIUM 1,000 MG in DEXTROSE 5% 50 ML IV SCH (08:28)
[2020-12-19] MEDS: ARIPiprazole 5 MG TAB PO SCH (08:32)
[2020-12-19] MEDS: ACETAMINOPHEN 500 MG TAB PO SCH (08:32)
--- NOTE | 2020-12-19 08:34 | Urology Progress Note ---
Date of Service December 19, 2020 Assessment & Plan (1) Left ureteral stone: (2) Hydronephrosis due to obstruction of ureter: Plan: 45 year old male admitted with left flank pain secondary to left distal ureteral stone with mild hydronephrosis. - Plan of care reviewed with Dr. Honeycutt, urologist special education classroom aide - Afebrile, nontoxic, lab work reviewed - creatinine 1.47, WBC 10.68 - Continues to have intermittent severe pain, mild relief with IV analgesia - UA on admission not suggestive of UTI; urine culture pending - on IV Ceftriaxone - KUB today reviewed and showed no change in 5 mm left distal ureteral stone - Discussed options for stone management including trial of passage vs surgical intervention with URS-LL, stent inpatient - Procedures, success rates, risks, benefits and clinical courses reviewed - Ureteral stents were discussed as well as post-operative issues and pain management - Pt voided at 0722 prior to KUB, now with urge to urinate but was unable to void - monitor prn bladder scan - Continue to strain all urine - Keep NPO for possible surgical intervention later today - Contacted by nursing at 1120 that patient was pain free, voiding without difficulty, no stone collected yet - KUB obtained and reviewed personally and with Dr. Honeycutt - Left ureteral stone not visualized and likely passed into bladder. - Patient remains pain free per nursing - No surgical intervention indicated at this time - Recommend continue to strain urine and he can be discharged when medically stable - Will arrange for outpatient follow-up with our service Admission and Anticipated Discharge Date Admission Date: December 17, 2020 Subjective Awake, alert and sitting up in bed. Reports ongoing severe left flank pain and reports minimal relief with IV morphine. Per chart review, utilizing IV morphine about Q2 hours. No stone passage overnight. KUB this AM shows no change of 5 mm left distal ureteral stone. Reports urge to void now but having difficulty voiding. He voided prior to KUB this AM. No dysuria or hematuria. No nausea or vomiting. No fever or chills. He is NPO. Chart review: Afebrile, creatinine 1.47, WBC 10.68, UC&S pending. On IV Ceftriaxone. No additional concerns today. Review of Systems Constitutional: as per Subjective / HPI Eyes: + corrective lenses Ear, Nose, Mouth, Throat: no problem reported Respiratory: no dyspnea Cardiovascular: no chest pain Gastrointestinal: as per Subjective / HPI Genitourinary: + as per Subjective / HPI Musculoskeletal: no problem reported Physical Exam Constitutional: well developed and well nourished; no acute distress and not ill appearing Neck: normal visual inspection Respiratory: normal respiratory effort and able to speak in complete sentences; no respiratory distress and no labored breathing Cardiovascular: Extremities: no pedal edema Gastrointestinal (Abdomen): Inspection/Auscultation: abdomen normal to inspection; abdomen not distended Percussion/Palpation: abdomen soft; abdomen nontender and no guarding Neurologic: moves all extremities and awake Psychiatric: Orientation: alert, oriented x 3 and cooperative Genitourinary: Minimally ttp left flank Results & Data ([facility]) Vital Signs (Past 12 Hours) Vital Signs Temp Pulse Resp BP Pulse Ox 12/19/20 07:20 36.7 C 79 16 125/78 97 12/18/20 23:22 36.7 C 64 16 120/67 96 PG Care Time/CCT Total # of Minutes Spent Total Time Spent with Patient: Total time spent is greater than 50% in coordination of care (as documented) at patient's floor/unit and/or counseling patient: Coding Level of Care Code 27556 Subseq Hosp Care Lvl 2 Diagnoses Left ureteral stone N20.1 Hydronephrosis due to obstruction of ureter N13.1
--- NOTE | 2020-12-19 13:19 | XRay Report ---
KUB CLINICAL HISTORY: ?passed stone COMPARISON STUDY: CT of the abdomen and pelvis December 08, 2020. KUB December 19, 2020. FINDINGS: The distal left ureteral calculus on prior exams is not definitively identified although co uld be obscured on this study. Left pelvic calcifications reflect phleboliths. There is mild gaseous distention of the colon without evidence for a bowel obstruction. There is a moderate amount of stool within the colon. IMPRESSION: Nonvisualization of the previous described distal left ureteral calculus although this c alculus could be obscured on this exam. ACT 112: Negative or not required by law. Electronically signed by: Himanshu Blount M.D. 12/19/2020 1:18 PM
--- NOTE | 2020-12-19 14:00 | Discharge Summary ---
Date of Service December 19, 2020 Admission HPI Per Admitting Provider This is a 45 male with past medical history of cirrhosis from hepatitis C that presents today complaining of left flank pain. Patient is a prisoner at [facility] [place]. Is a decent historian. Patient was here on 12/06. At that time he was having similar symptoms, was diagnosed with 3mm distal ureteral stone. He was felt that this would pass on its own the patient was discharged back to [facility]. He feels that he did in fact pass a stone was doing well up until earlier today. He started having similar flank pain although this time was worse. He was given 2 doses of pain medication at the [facility] but this did not help. Patient was transported here for further evaluation. Patient had an ultrasound and a KUB, patient has a ureteral stone that is between 5 and 7 mm at the left UVJ. There is evidence of hydronephrosis. Patient is now being admitted for further evaluation and definitive treatment. Discharge Data Allergies Allergy/AdvReac Type Severity Reaction Status Date / Time No Known Allergies Allergy Unverified 12/17/20 14:40 Consultations 12/17/20 16:01 ED Decision to Admit Stat 12/17/20 21:08 Consult Urology Routine Ordered Studies 12/17/20 12:58 US renal/blad retro comp Stat Hospital Course (1) Renal colic on left side: Morphine for pain, ondansetron for nausea Continue tamsulosin 0.4mg PO HS Continue IV NSS, increase to 200ml/hr Appreciate urology recommendations - NPO after midnight (2) Leukocytosis: Start ceftriaxone due to rising WBC. UA not suggestive of infection. (3) Elevated serum creatinine: Does not meet criteria for STACY. Obstructive uropathy - management per urology. Increase NSS as above. (4) Hepatitis C: Stable, patient is not on no treatment for this Discharge Plan Discharge Items [facility] Disposition[facility] Reason For Visit: KIDNEY STONE Discharge Diagnosis: Kidney stone Condition on Discharge: Good Activity: Resume your previous activity Non-emergency contact: Primary Care Provider Call non-emergency contact if: you have any medication questions and your symptoms worsen Follow-up/Referrals: Vega Beltrán MD [Physician] - (4-6 week follow up ureterolithiasis) [place]le PRATHER [Primary Care Provider] - Diet: Regular Ambulatory Orders: US renal/blad retro comp (Routine) Timeframe: 4 Weeks Location: Determined by Patient Ordered By: Salena Montesinos Attending Provider Instructions: You were admitted to [facility] from December 17-2020 due to a kidney stone. This was treated conservatively with intravenous fluid and tamsulosin. He is now pain free and XR KUB does not show the stone. No stone in urine filtrate therefore suspect this is in your bladder. On discussion with urology recommend continuing tamsulosin for another 7 days to aid passage of the stone. Continue to filter urine and send stone for urine analysis if you pass it. Follow up with urology in 4-6 weeks as above. Pending Studies at Discharge: No Stand-Alone Forms: [facility] Skilled Items Patient informed of condition?: Yes Discharge Level of Care: Other Communicable Disease: No Discharge Prognosis: Stable Lines: None Urinary Catheter: No Medications and DC Order Prescriptions: Continued ibuprofen [IBU] 600 mg Tablet 600 mg PO Q6H PRN (Reason: Pain) RF: 0 aripiprazole [Abilify] 5 mg Tablet 5 mg PO BID RF: 0 tamsulosin [Flomax] 0.4 mg capsule 0.4 mg PO HS Qty: 7 RF: 0 Discontinued ketorolac 60 mg/2 mL Solution 60 mg IM DAILY RF: 0 ketorolac 60 mg/2 mL Syringe 30 mg IM ONCE RF: 0 Discharge Orders: Discharge Order (Routine); Ordered 12/19/20 Ordered By: Maximino Wiseman Admission Data Admit Date/Time: 12/17/20 18:47 Attending Provider: Maximino Wiseman Admit Provider: Prateek Bills Primary Care Provider: [place] PRATHER Other Providers: Prateek Bills ; Vega Beltrán Coding Diagnoses Renal colic on left side N23 Leukocytosis D72.829 Elevated serum creatinine R79.89 Hepatitis C B19.20
== END 2020-12-19 15:06 | DRG 694 ==
LOC: ED 11:47 → 3E 18:47 → SUATTDRO 18:47 → 3E 20:27